=== PATIENT | female | born 1960 | race Caucasian/White ===

== ENCOUNTER 2018-09-10 18:55 | Emergency (ER) | payer MEDICAID, OTHER | END 2018-09-10 20:41 | disposition home or self-care (01) | LOC: ER 18:55 ==

== ENCOUNTER 2019-09-25 14:13 | Emergency (ER) | payer MEDICAID, MEDICARE ==
[~2019-09-25] VITALS: Ht 167 cm; Wt 72.0 kg
[~2019-09-25 14:13] MED LIST: BENZ100C18 PO; CEFD300C3 PO; GUAI1TBM19 PO; METH4TAB PO; METR500T PO; PHEN-640 PO; RT-ALBUINH IH
[2019-09-25] MEDS ORDERED: D5 NS 1000 ML IV SOLUTION 1,000 ML IV ONE (14:21)
--- NOTE | 2019-09-25 14:33 | ED Syncope ---
General Stated Complaint: FALL History of Present Illness Date Seen by Provider: Sep 25, 2019 Time Seen by Provider: 14:20 Initial Comments 59 -year-old female presents via EMS after a syncopal episode at the [facility]. She reports not eating since 1400 yesterday. She has no history of diabetes, seizure disorder or syncopal episodes. She denies nausea, vomiting, chest pain, or headache. NIH 0. Alert and oriented at this time. Does report drinking 4 beers prior to going to [facility] at 10:00 am today, however there is obvious smell of alcohol on her breath. Timing/Prior Episodes: Single Episode Today Symptoms Prior to Episode: None Precipitating Factors: Other (No food intake for 18-24 hours, then drank 4 beers) Loss of Consciousness: No Loss of Consciousness Current Symptoms: Back to Normal; No Blurred Vision, No Chest Pain, No Diaphoresis, No Dizziness, No Headache, No Injury, No Lightheadedness, No Loss of Bladder Control, No Loss of Bowel Control, No Motionless, No Nausea, No Pale, No Shallow/Rapid Breathing, No Weak/Absent Pulse, No Weakness, No Other Allergies and Home Medications Allergies Coded Allergies: codeine (Verified Allergy, Unknown, 09/10/18) Home Medications Albuterol Sulfate 1 Puff Puff, 2 PUFF IH Q4H USE WITH SPACER AT ALL TIMES Prescribed by: ARMANDO DIAZ on 09/10/182025 Benzonatate 100 Mg Capsule, 1-2 TAB PO TID Prescribed by: ARMANDO DIAZ on 09/10/182025 Cefdinir 300 Mg Capsule, 300 MG PO BID Prescribed by: ARMANDO DIAZ on 09/10/182025 Ciprofloxacin HCl 500 Mg Tablet, 500 MG PO BID Prescribed by: JANE DIAZ on 09/25/19 1628 Guaifenesin/Dextromethorphan 1 Each Tbmp.12hr, 1 EACH PO BID Prescribed by: ARMANDO DIAZ on 09/10/182025 Methylprednisolone 4 Mg Tab.ds.pk, 4 MG PO UD Prescribed by: ARMANDO DIAZ on 09/10/182025 Metronidazole 500 Mg Tablet, 500 MG PO QID Prescribed by: ARMANDO DIAZ on 09/10/182025 Phenazopyridine HCl 200 Mg Tablet, 1 TAB PO TID Prescribed by: ARMANDO DIAZ on 09/11/18 0635 Patient Home Medication List Home Medication List Reviewed: Yes Review of Systems Constitutional: no symptoms reported, see HPI EENTM: see HPI, no symptoms reported Cardiovascular: see HPI; No chest pain, No edema, No Hx of Intervention, No palpitations; syncope; No vascular heart diseas Psychiatric/Neurological: See HPI, Other (syncopal episode) All Other Systems Reviewed Negative Unless Noted: Yes Past Ozvxmys-Hpdhuh-Uapduc Hx Past Med/Social Hx: Reviewed Nursing Past Med/Soc Hx Patient Social History Type Used: Cigarettes Recent Foreign Travel: No Contact w/Someone Who Travel: No Recent Hopitalizations: No Seasonal Allergies Seasonal Allergies: No Past Medical History Surgeries: Yes (BMT'S) Ear Surgery, Tubal Ligation Respiratory: No (SMOKER) Cardiac: No Neurological: No 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 oz. 70.391310sn; BMI Method:Stated General Appearance: No Apparent Distress, WD/WN HEENT: PERRL/EOMI, TMs Normal, Normal ENT Inspection, Pharynx Normal Neck: Full Range of Motion, Normal Inspection, Non Tender, Supple Cardiovascular: Regular Rate, Rhythm, No Murmur, Normal Peripheral Pulses Respiratory: Chest Non Tender, Lungs Clear, Normal Breath Sounds, Other (No rib pain, ecchymosis or crepitus. ) Gastrointestinal: Normal Bowel Sounds, Non Tender, Soft; No Distended, No Guarding Extremities: Normal Capillary Refill, Normal Inspection, Normal Range of Motion, No Pedal Edema Neurologic/Psychiatric: Alert, Oriented x3, No Motor/Sensory Deficits, Normal Mood/Affect, air brake tester II-XII Norm as Tested Cranial Nerves: Normal Hearing, Normal Speech, PERRL Coordination/Gait: Normal Finger to Nose Motor/Sensory: No Motor Deficit, No Sensory Deficit Skin: Normal Color, Warm/Dry NIH 0 Progress/Results/Core Measures Results/Orders Lab Results Laboratory Tests Test 09/25/19 14:40 09/25/19 15:10 09/25/19 15:40 Range/Units Glucometer 97 70-110 MG/DL White Blood Count 6.6 4.3-11.0 10^3/uL Red Blood Count 4.87 4.35-5.85 10^6/uL Hemoglobin 15.9 11.5-16.0 G/DL Hematocrit 47 35-52 % Mean Corpuscular Volume 96 80-99 FL Mean Corpuscular Hemoglobin 33 25-34 PG Mean Corpuscular Hemoglobin Concent 34 32-36 G/DL Red Cell Distribution Width 12.8 10.0-14.5 % Platelet Count 152 130-400 10^3/uL Mean Platelet Volume 10.3 7.4-10.4 FL Neutrophils (%) (Auto) 68 42-75 % Lymphocytes (%) (Auto) 22 12-44 % Monocytes (%) (Auto) 8 0-12 % Eosinophils (%) (Auto) 1 0-10 % Basophils (%) (Auto) 1 0-10 % Neutrophils # (Auto) 4.5 1.8-7.8 X 10^3 Lymphocytes # (Auto) 1.5 1.0-4.0 X 10^3 Monocytes # (Auto) 0.6 0.0-1.0 X 10^3 Eosinophils # (Auto) 0.0 0.0-0.3 10^3/uL Basophils # (Auto) 0.0 0.0-0.1 10^3/uL Sodium Level 132 L 135-145 MMOL/L Potassium Level 4.1 3.6-5.0 MMOL/L Chloride Level 101 98-107 MMOL/L Carbon Dioxide Level 17 L 21-32 MMOL/L Anion Gap 14 5-14 MMOL/L Blood Urea Nitrogen 8 7-18 MG/DL Creatinine 0.70 0.60-1.30 MG/DL Estimat Glomerular Filtration Rate > 60 BUN/Creatinine Ratio 11 Glucose Level 93 70-105 MG/DL Calcium Level 9.2 8.5-10.1 MG/DL Corrected Calcium 9.0 8.5-10.1 MG/DL Total Bilirubin 0.5 0.1-1.0 MG/DL Aspartate Amino Transf (AST/SGOT) 85 H 5-34 U/L Alanine Aminotransferase (ALT/SGPT) 65 H 0-55 U/L Alkaline Phosphatase 106 40-136 U/L Troponin I < 0.028 <0.028 NG/ML Total Protein 7.6 6.4-8.2 GM/DL Albumin 4.2 3.2-4.5 GM/DL Serum Alcohol 88 H <10 MG/DL Urine Color YELLOW Urine Clarity SL CLOUDY Urine pH 6.0 5-9 Urine Specific [place] <=1.005 1.016-1.022 Urine Protein NEGATIVE NEGATIVE Urine Glucose (UA) 1+ H NEGATIVE Urine Ketones NEGATIVE NEGATIVE Urine Nitrite NEGATIVE NEGATIVE Urine Bilirubin NEGATIVE NEGATIVE Urine Urobilinogen 0.2 < = 1.0 MG/DL Urine Leukocyte Esterase TRACE H NEGATIVE Urine RBC (Auto) NEGATIVE NEGATIVE Urine RBC NONE /HPF Urine WBC 2-5 /HPF Urine Squamous Epithelial Cells 2-5 /HPF Urine Crystals NONE /LPF Urine Bacteria LARGE H /HPF Urine Casts NONE /LPF Urine Mucus NEGATIVE /LPF Urine Culture Indicated YES Urine Opiates Screen NEGATIVE NEGATIVE Urine Oxycodone Screen NEGATIVE NEGATIVE Urine Methadone Screen NEGATIVE NEGATIVE Urine Propoxyphene Screen NEGATIVE NEGATIVE Urine Barbiturates Screen NEGATIVE NEGATIVE Ur Tricyclic Antidepressants Screen NEGATIVE NEGATIVE Urine Phencyclidine Screen NEGATIVE NEGATIVE Urine Amphetamines Screen NEGATIVE NEGATIVE Urine Methamphetamines Screen NEGATIVE NEGATIVE Urine Benzodiazepines Screen NEGATIVE NEGATIVE Urine Cocaine Screen NEGATIVE NEGATIVE Urine Cannabinoids Screen NEGATIVE NEGATIVE My Orders Orders - JANE DIAZ 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 Accucheck Stat ONCE (09/25/19 14:21) Alcohol (09/25/19 14:21) Cbc With Automated Diff (09/25/19 14:21) Comprehensive Metabolic Panel (09/25/19 14:21) Drug Screen Stat (Urine) (09/25/19 14:21) Ua Culture If Indicated (09/25/19 14:21) Ed Iv/Invasive Line Start (09/25/19 14:21) D5 Ns 1000 Ml Iv Solution (Dextrose 5%/0 (09/25/19 14:21) Ekg Tracing (09/25/19 14:47) Troponin I (09/25/19 14:47) Urine Culture (09/25/19 15:40) Medications Given in ED Current Medications Medications Dose Ordered Sig/Hernandez Route Start Time Stop Time Status Last Admin Dose Admin Dextrose/Sodium Chloride 1,000 ml @ 0 mls/hr Q0M ONCE IV 09/25/19 14:21 09/25/19 14:23 DC 09/25/19 15:15 1,000 MLS/HR Vital Signs/I&O 09/25/19 09/25/19 14:13 16:34 Temp 36.3 36.3 Pulse 89 89 Resp 16 16 B/P (MAP) 136/87 (103) 124/85 (103) Pulse Ox 97 97 O2 Delivery Room Air Progress Progress Note : Time: 14:20 Progress Note Patient seen and evaluated, will obtain labs, EKG, IV D5NS 1 L. Accu-Chek 97. 1500 Patient reports to be feeling better. She is taking ice chips and no complaints. Mother at bedside. 1530 Labs all essentially WNL. No complaints. Awaiting UA. 1600 discharge instructions and return precautions reviewed with the patient. All Questions answered. Initial ECG Impression Date: Sep 25, 2019 Initial ECG Impression Time: 15:33 Initial ECG Rate: 86 Initial ECG Rhythm: Normal Sinus Initial ECG Intervals: Normal Initial ECG Intervals IA 156, QRSD 88, QT 404, QTc 484. [place] P 11, QRS 42, T 54. Initial ECG Impression: Normal Initial ECG Comparisson: No Previous ECG Available Departure Impression Primary Impression: Syncope Qualified Codes: R55 - Syncope and collapse Additional Impression: UTI (urinary tract infection) Qualified Codes: N30.01 - Acute cystitis with hematuria Disposition: HOME, SELF-CARE Condition: Improved Departure-Patient Inst. Decision time for Depature: 16:00 Referrals: BRITTANY MULLEN DO (PCP/Family) Primary Care Physician Patient Instructions: Syncope (Fainting) (DC), Urinary Tract Infection, Adult (DC) Add. Discharge Instructions: Eat small frequent meals, especially before consuming any alcohol. Increase water intake, 16 ounces every 2 hours while awake. Alternate between Tylenol 650 mg and ibuprofen 600 mg every 4 hours for pain or fever. Follow-up with your primary care provider early next week. Take antibiotics as prescribed. Return to the emergency department for new, urgent health care needs. Scripts Ciprofloxacin HCl (Ciprofloxacin HCl) 500 Mg Tablet 500 MG PO BID, #14 TAB 0 Refills Prov: JANE DIAZ 09/25/19 JANE DIAZ Sep 25, 2019 14:33
[2019-09-25 15:16] LABS: BASOPHILS % (AUTO) 1 % (0-10); EOSINOPHILS % (AUTO) 1 % (0-10); HEMATOCRIT 47 % (35-52); HEMOGLOBIN 15.9 G/DL (11.5-16.0); LYMPHOCYTES # (AUTO) 1.5 X 10^3 (1.0-4.0); LYMPHOCYTES % (AUTO) 22 % (12-44); MEAN CORPUSCULAR HEMOGLOBIN 33 PG (25-34); MEAN CORPUSCULAR HGB CONC 34 G/DL (32-36); MEAN CORPUSCULAR VOLUME 96 FL (80-99); MEAN PLATELET VOLUME 10.3 FL (7.4-10.4); MONOCYTES # (AUTO) 0.6 X 10^3 (0.0-1.0); MONOCYTES % (AUTO) 8 % (0-12); NEUTROPHILS # (AUTO) 4.5 X 10^3 (1.8-7.8); NEUTROPHILS % (AUTO) 68 % (42-75); PLATELET COUNT 152 10^3/uL (130-400); RED CELL DISTRIBUTION WIDTH 12.8 % (10.0-14.5); WHITE BLOOD COUNT 6.6 10^3/uL (4.3-11.0)
[2019-09-25 15:33] LABS: ALANINE AMINOTRANSFERASE 65 U/L (0-55); ALBUMIN 4.2 GM/DL (3.2-4.5); ALKALINE PHOSPHATASE 106 U/L (40-136); BILIRUBIN,TOTAL 0.5 MG/DL (0.1-1.0); BUN/CREATININE RATIO 11; CALCIUM 9.2 MG/DL (8.5-10.1); CARBON DIOXIDE 17 MMOL/L (21-32); CHLORIDE 101 MMOL/L (98-107); GFR ESTIMATED > 60; GLUCOSE 93 MG/DL (70-105); POTASSIUM 4.1 MMOL/L (3.6-5.0); SODIUM 132 MMOL/L (135-145); TOTAL PROTEIN 7.6 GM/DL (6.4-8.2)
[2019-09-25 15:54] LABS: BILIRUBIN,URINE NEGATIVE (NEGATIVE); COLOR,URINE YELLOW; GLUCOSE, URINE (UA) 1+ (NEGATIVE); KETONES,URINE NEGATIVE (NEGATIVE); LEUKOCYTE ESTERASE ,URINE TRACE (NEGATIVE); NITRITE,URINE NEGATIVE (NEGATIVE); PROTEIN,URINE NEGATIVE (NEGATIVE)
[2019-09-25 16:03] LABS: BACTERIA,URINE LARGE /HPF; CLARITY,URINE SL CLOUDY
[2019-09-25 16:07] LABS: AMPHETAMINE SCREEN, URINE NEGATIVE (NEGATIVE); BARBITURATE SCREEN URINE NEGATIVE (NEGATIVE); BENZODIAZEPINES SCREEN URINE NEGATIVE (NEGATIVE); CANNABINOID SCREEN, URINE NEGATIVE (NEGATIVE); COCAINE SCREEN URINE NEGATIVE (NEGATIVE); METHADONE STAT NEGATIVE (NEGATIVE); METHAMPHETAMINE SCREEN URINE S NEGATIVE (NEGATIVE); OPIATE SCREEN URINE NEGATIVE (NEGATIVE); OXYCODONE STAT NEGATIVE (NEGATIVE); PROPOXYPHENE STAT NEGATIVE (NEGATIVE); TRICYCLIC ANTIDEPRESSANTS SCRE NEGATIVE (NEGATIVE)
[2019-09-25] MEDS ORDERED: CIPR500T4 PO (16:28)
[2019-09-25 16:34] VITALS: BP 124/85
== END 2019-09-25 16:34 | disposition home or self-care (01) ==
LOC: ER 14:13 → EDUNIT# 14:13 → ER 16:34
DX: R55 Syncope and collapse (principal); N39.0 Urinary tract infection, site not specified; Z88.5 Allergy status to narcotic agent
CPT/HCPCS: 36415; 80053; 80306; 80320; 81000; 82962; 84484; 85025; 87077; 87088; 87186; 93005

== ENCOUNTER 2021-07-22 01:45 | Emergency (ER) | payer MEDICARE, MEDICAID ==
[~2021-07-22] VITALS: Ht 168 cm; Wt 64.0 kg
[~2021-07-22 01:45] MED LIST changes: +CIPR500T5 PO
[2021-07-22 02:26] LABS: BILIRUBIN,URINE NEGATIVE (NEGATIVE); CLARITY,URINE CLEAR; COLOR,URINE YELLOW; GLUCOSE, URINE (UA) NEGATIVE (NEGATIVE); KETONES,URINE NEGATIVE (NEGATIVE); LEUKOCYTE ESTERASE ,URINE 1+ (NEGATIVE); NITRITE,URINE NEGATIVE (NEGATIVE); PROTEIN,URINE NEGATIVE (NEGATIVE)
[2021-07-22 02:33] LABS: BACTERIA,URINE FEW /HPF
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
[2021-07-22 03:17] LABS: BASOPHILS # (AUTO) 0.1 10^3/uL (0.0-0.1); BASOPHILS % (AUTO) 1 % (0-10); EOSINOPHILS # (AUTO) 0.1 10^3/uL (0.0-0.3); EOSINOPHILS % (AUTO) 1 % (0-10); HEMATOCRIT 51 % (35-52); HEMOGLOBIN 17.7 g/dL (11.5-16.0); LYMPHOCYTES # (AUTO) 2.6 10^3/uL (1.0-4.0); LYMPHOCYTES % (AUTO) 24 % (12-44); MEAN CORPUSCULAR HEMOGLOBIN 31 pg (25-34); MEAN CORPUSCULAR HGB CONC 35 g/dL (32-36); MEAN CORPUSCULAR VOLUME 91 fL (80-99); MEAN PLATELET VOLUME 10.2 fL (9.0-12.2); MONOCYTES # (AUTO) 0.9 10^3/uL (0.0-1.0); MONOCYTES % (AUTO) 9 % (0-12); NEUTROPHILS # (AUTO) 6.9 10^3/uL (1.8-7.8); NEUTROPHILS % (AUTO) 65 % (42-75); PLATELET COUNT 188 10^3/uL (130-400); WHITE BLOOD COUNT 10.6 10^3/uL (4.3-11.0)
[2021-07-22 03:29] LABS: ALBUMIN 4.1 GM/DL (3.2-4.5); POTASSIUM 3.9 MMOL/L (3.6-5.0)
[2021-07-22 03:30] LABS: CALCIUM 9.9 MG/DL (8.5-10.1)
[2021-07-22 03:32] LABS: TOTAL PROTEIN 8.1 GM/DL (6.4-8.2)
[2021-07-22 03:33] LABS: BILIRUBIN,TOTAL 0.9 MG/DL (0.1-1.0)
[2021-07-22 03:35] LABS: CREATININE SERUM 0.8 MG/DL (0.60-1.30)
[2021-07-22] MEDS ORDERED: CEPHALEXIN 250 MG (KEFLEX) CAP PO STA (04:03)
--- NOTE | 2021-07-22 04:16 | Diagnostic Imaging Report ---
PROCEDURE: CT head without contrast. TECHNIQUE: Multiple contiguous axial images were obtained through the brain without the use of intravenous contrast. Auto Exposure Controls were utilized during the CT exam to meet ALARA standards for radiation dose reduction. INDICATION: Headache and syncope There is no previous study for comparison CT HEAD: CT images of the head were obtained. FINDINGS: Ventricles and sulci are within normal limits for size. There is no intracranial hemorrhage identified. There is no abnormal mass effect or shift of midline structures. There is opacification of posterior right mastoid air cells. Atherosclerotic calcification is seen within distal internal carotid and vertebral arteries. IMPRESSION: No CT evidence of acute intracranial abnormality. There is opacification of posterior right mastoid air cells and clinical correlation to the symptoms in this region would be useful. Dictated by: Dictated on workstation # [id number]
[2021-07-22] MEDS ORDERED: CEFD300C3 PO (04:51)
[2021-07-22 04:56] VITALS: BP 147/91
== END 2021-07-22 04:56 | disposition home or self-care (01) ==
LOC: EDUNIT# 01:45 → ER 01:48
DX: N39.0 Urinary tract infection, site not specified (principal); R55 Syncope and collapse; H74.91 Unspecified disorder of right middle ear and mastoid; F17.210 Nicotine dependence, cigarettes, uncomplicated; Z71.6 Tobacco abuse counseling
CPT/HCPCS: 36415; 70450; 80053; 81000; 83735; 85025; 86141; 87088; 87186; 93005